=== PATIENT | female | born 1995 | race Two or more races ===

== ENCOUNTER 2018-10-12 20:46 | Emergency (ER) | payer MEDICAID ==
[~2018-10-12] VITALS: Ht 154.9 cm; Wt 104.8 kg
[~2018-10-12 20:46] MED LIST: PRENCAP61 PO
[2018-10-13 00:17] VITALS: BP 110/72
== END 2018-10-13 00:47 | disposition home or self-care (01) ==
LOC: ER 20:46
DX: F41.9 Anxiety disorder, unspecified (principal); R42 Dizziness and giddiness; R51 Headache; Z53.21 Procedure and treatment not carried out due to patient leaving prior to being seen by health care provider
CPT/HCPCS: 82962

== ENCOUNTER 2019-08-07 12:20 | Observation (INO) | payer MEDICAID ==
[~2019-08-07] VITALS: Ht 157.5 cm; Wt 106.1 kg
[2019-08-07] MEDS ORDERED: BETAMETHASONE ACET (6MG/ML) 5ML VIAL IM ONE (13:45)
== END 2019-08-07 14:23 | disposition home or self-care (01) | DRG 566 ==
LOC: LDRP 12:20 → UNDOADMOB 12:22
PROVIDERS: ADMIT Specialist; ATTEND Specialist
DX: O36.5930 Maternal care for other known or suspected poor fetal growth, third trimester, not applicable or unspecified (principal); Z3A.37 37 weeks gestation of pregnancy
CPT/HCPCS: 76818; 81002; 96372; G0378; J0702

== ENCOUNTER 2019-08-09 10:12 | Observation (INO) | payer MEDICAID | END 2019-08-09 12:25 | disposition home or self-care (01) | DRG 566 | LOC: LDRP 10:12 | PROVIDERS: ADMIT Obstetrics & Gynecology; ATTEND Obstetrics & Gynecology | DX: O36.5930 Maternal care for other known or suspected poor fetal growth, third trimester, not applicable or unspecified (principal); Z3A.37 37 weeks gestation of pregnancy | CPT/HCPCS: 76818; 81002; G0378 ==

== ENCOUNTER 2019-08-13 10:49 | Observation (INO) | payer MEDICAID | END 2019-08-13 13:20 | disposition home or self-care (01) | DRG 566 | LOC: LDRP 10:49 | PROVIDERS: ADMIT Obstetrics & Gynecology; ATTEND Obstetrics & Gynecology | DX: O36.5930 Maternal care for other known or suspected poor fetal growth, third trimester, not applicable or unspecified (principal); Z3A.38 38 weeks gestation of pregnancy | CPT/HCPCS: 59025; 76818; 81002; G0378 ==

== ENCOUNTER 2019-08-15 12:45 | Inpatient (IN) | payer MEDICAID ==
[~2019-08-15] VITALS: Ht 30.5 cm; Wt 0.5 kg
[2019-08-15] MEDS ORDERED: LACT. RINGERS/OXYTOCIN 20UNITS 1,000 ML IV SCH ×2 (14:57→21:24)
[2019-08-15] MEDS ORDERED: LACTATED RINGER'S 1,000 ML IV SCH (14:57)
[2019-08-15] MEDS ORDERED: CARBOPROST TROMETHAMINE 250 MCG/1ML VIAL IM PRN (15:00)
[2019-08-15] MEDS ORDERED: METHYLERGONOVINE MALEATE 0.2 MG/ML AMP IM PRN (15:00)
[2019-08-15] MEDS ORDERED: LIDOCAINE 2%HCL (LOCAL ANESTH.) INJ 20ML MDV ID ONE (15:00)
[2019-08-15] MEDS ORDERED: PHISODERM TOP SOLN 240ML BTL TOP PRN (15:00)
[2019-08-15] MEDS ORDERED: WITCH HAZEL-GLYCERIN PAD TOP PRN (15:00)
[2019-08-15] MEDS ORDERED: DERMOPLAST 60ML BOTTLE TOP PRN (15:00)
[2019-08-15 15:36] LABS: Basophils # (auto) 0.1 10 ^3/uL (0-0.2); Basophils % (auto) 0.8 % (0.0-2.0); Eosinophils # (auto) 0 10 ^3/uL (0-0.8); Eosinophils % (auto) 0.2 % (0.0-7.0); Hematocrit 39.7 % (36.0-46.0); Hemoglobin 13.1 g/dL (12.2-16.2); Lymphocytes # (auto) 1.9 10 ^3/uL (0.4-5.4); Lymphocytes % (auto) 14.9 % (10.0-50.0); Mean Corpuscular Hemoglobin 28.6 pg (28.0-32.0); Mean Corpuscular Hgb Conc. 33.1 g/dL (32.0-36.0); Mean Corpuscular Volume 86.5 fL (80.0-100.0); Monocytes # (auto) 0.7 10 ^3/uL (0-1.3); Monocytes % (auto) 5.4 % (0.0-12.0); Neutrophils # (auto) 9.9 10 ^3/uL (1.6-8.6); Neutrophils % (auto) 78.7 % (37.0-80.0); Platelet Count (auto) 255 10^3/uL (140-450); Red Blood Cells 4.59 10^6/uL (4.0-5.20); Red Cell Distribution Width 14.4 % (11.8-14.3); White Blood Cell 12.6 10^3/uL (4.4-10.8)
[2019-08-15 15:45] LABS: Urine Bacteria FEW /hpf (None Seen); Urine Blood Negative /uL (Negative); Urine Specific Gravity 1.021 (1.001-1.035); Urine WBC 2 /hpf (0 - 5)
[2019-08-15 15:51] LABS: INR 0.95 (0.9-1.15); Partial Thromboplastin Time 26.9 sec (23.64-32.05)
[2019-08-15 15:53] LABS: Albumin 2.6 g/dL (3.4-5.0); BUN/Creatinine Ratio 15.8; Calcium 8.9 mg/dL (8.5-10.1); Potassium 3.8 mmol/L (3.5-5.1)
[2019-08-15 15:56] LABS: Bilirubin, Total 0.4 mg/dL (0.2-1.0); Total Protein 7.2 g/dL (6.4-8.2)
[2019-08-15 16:36] LABS: Alcohol, Urine < 3.0 mg/dL (0-5); Amphetamine Screen, Urine NEGATIVE (NEGATIVE); Barbiturate Scree,Urine NEGATIVE (NEGATIVE); Benzodiazephine Screen, Urine NEGATIVE (NEGATIVE); Cannabinoid Screen, Urine NEGATIVE (NEGATIVE); Cocaine Screen, Urine NEGATIVE (NEGATIVE); Opiate Scree,Urine NEGATIVE (NEGATIVE); Phencyclidine Screen, Urine NEGATIVE (NEGATIVE)
[2019-08-15 19:00] VITALS: BP 105/61
[2019-08-15] MEDS ORDERED: ACETAMINOPHEN 325 MG TAB PO PRN (20:30)
--- NOTE | 2019-08-15 20:30 | NUR ---
Bottle-feeding Education: Patient encouraged to breastfeed. Benefits of and the risk of providing formula to was discussed. Patient verbalized understanding of the benefits and is aware of risk and insists on bottle-feeding. Formula provided and instruction on formula preperation from the [facility] booklet reviewed with patient.
--- NOTE | 2019-08-15 20:31 | NUR ---
Ambulation: Patient OOB with standby assistance by RN. Patient ambulated to bathroom with steady gait. Patient able to void without difficulty. Pericare teaching provided with returned demonstration by patient. Clean gown provided and bed linen changed. Patient ambulated back to bed with steady gait and no distress noted.
[2019-08-15] MEDS: IBUPROFEN 600 MG TAB PO PRN (21:01)
[2019-08-15 23:00] VITALS: BP 114/55
[2019-08-16] MEDS: IBUPROFEN 600 MG TAB PO PRN ×2 (01:37→15:22)
[2019-08-16 03:00] VITALS: BP 111/55
[2019-08-16 04:06] LABS: RPR Non Reactive (Non Reactive)
[2019-08-16 07:00] VITALS: BP 113/63
--- NOTE | 2019-08-16 07:30 | NUR ---
IV 20g in left hand discontinued per policy and Dr's order. Cath intact. Tolerated well. Pressure dressing applied to site. Addendum: 08/16/19 at 0817 by NUHA LOVE RN Amended: Links added.
[2019-08-16 11:00] VITALS: BP 118/74
[2019-08-16 15:00] VITALS: BP 114/57
[2019-08-16] MEDS ORDERED: MEASLES, MUMPS & RUBELLA VAC(MMRII) 0.5ML SC ONE (17:00)
[2019-08-16] MEDS ORDERED: TETANUS-DIPTH-ACEL PERTUSSIS 0.5ML SYR Tdap IM ONE (17:00)
--- NOTE | 2019-08-16 17:30 | NUR ---
Discharge: Discharge instructions given as ordered. Pt encouraged to follow up with PLUMBING AND HEATING MECHANIC as instructed. All questions and concerns addressed. Patient verbalized understanding. Medication reconciliation completed and copy given to patient. All required/requested vaccines given and copies of vaccinations given to patient. Patient encouraged to prepare to depart unit.
--- NOTE | 2019-08-16 18:00 | NUR ---
Discharge: Patient taken to vehicle via ambulation with all personal belongings, discharge paperwork accompanied by staff and family member. No distress noted at time of departure, no adverse changes in status since initial assessment.
== END 2019-08-16 18:00 | disposition home or self-care (01) | DRG 560 ==
LOC: LDRP 12:45 → OBSVTOIN 13:35 → LDRP 13:55
PROVIDERS: ADMIT Obstetrics & Gynecology; ATTEND Obstetrics & Gynecology
PROC: 10E0XZZ Delivery of Products of Conception, External Approach (ICD-10-PCS; principal; 2019-08-15)
PROC: 0HQ9XZZ Repair Perineum Skin, External Approach (ICD-10-PCS; 2019-08-15)
PROC: 10907ZC Drainage of Amniotic Fluid, Therapeutic from Products of Conception, Via Natural or Artificial Opening (ICD-10-PCS; 2019-08-15)
DX: O70.0 First degree perineal laceration during delivery (principal); Z37.0 Single live birth; Z3A.38 38 weeks gestation of pregnancy
CPT/HCPCS: 36415; 59409; 80053; 80307; 81001; 84112; 85025; 85610; 85730; 86592; 86850; 86900; 86901; 90715; 96372; G0378; J2590

== ENCOUNTER 2020-03-04 09:28 | Emergency (ER) | payer MEDICAID ==
[~2020-03-04] VITALS: Ht 152.4 cm; Wt 113.4 kg
[2020-03-04 11:41] VITALS: BP 118/75
== END 2020-03-04 11:54 | disposition home or self-care (01) ==
LOC: ER 09:28
DX: R07.89 Other chest pain (principal); F41.9 Anxiety disorder, unspecified; Z20.828 Contact with and (suspected) exposure to other viral communicable diseases; Z79.899 Other long term (current) drug therapy
CPT/HCPCS: 36415; 87426

== ENCOUNTER 2020-12-22 08:59 | Emergency (ER) | payer MEDICAID ==
[~2020-12-22] VITALS: Ht 149.9 cm; Wt 106.7 kg
[2020-12-22 09:07] VITALS: BP 111/74
== END 2020-12-22 10:24 | disposition home or self-care (01) ==
LOC: ER 08:59
DX: J02.9 Acute pharyngitis, unspecified (principal); Z79.899 Other long term (current) drug therapy; Z20.822 Contact with and (suspected) exposure to COVID-19
CPT/HCPCS: 36415; 87426

== ENCOUNTER 2021-01-29 11:05 | Emergency (ER) | payer MEDICAID ==
[~2021-01-29] VITALS: Ht 152.4 cm; Wt 109.8 kg
[2021-01-29 11:39] LABS: Urine Bacteria FEW /hpf (None Seen); Urine Blood Negative /uL (Negative); Urine Mucus FEW (None Seen); Urine Specific Gravity 1.022 (1.001-1.035); Urine WBC 5 /hpf (0 - 5)
[2021-01-29 11:55] LABS: Basophils # (auto) 0.1 10 ^3/uL (0-0.2); Basophils % (auto) 0.7 % (0.0-2.0); Eosinophils # (auto) 0.2 10 ^3/uL (0-0.8); Hematocrit 40.8 % (36.0-46.0); Hemoglobin 13.6 g/dL (12.2-16.2); Lymphocytes % (auto) 30.5 % (10.0-50.0); Mean Corpuscular Hemoglobin 29.6 pg (28.0-32.0); Mean Corpuscular Hgb Conc. 33.4 g/dL (32.0-36.0); Mean Corpuscular Volume 88.5 fL (80.0-100.0); Monocytes # (auto) 0.7 10 ^3/uL (0-1.3); Monocytes % (auto) 6.6 % (0.0-12.0); Neutrophils % (auto) 60.2 % (37.0-80.0); Nucleated Red Blood Cells % 0.1 %; Red Blood Cells 4.61 10^6/uL (4.0-5.20); Red Cell Distribution Width 14.7 % (11.8-14.3); White Blood Cell 9.9 10^3/uL (4.4-10.8)
[2021-01-29 12:05] VITALS: BP 105/48
[2021-01-29 12:05] LABS: Calcium 8.3 mg/dL (8.5-10.1); Potassium 3.9 mmol/L (3.5-5.1)
[2021-01-29 12:09] LABS: Bilirubin, Total 0.2 mg/dL (0.2-1.0); Total Protein 6.8 g/dL (6.4-8.2)
[2021-01-29] MEDS ORDERED: KETOROLAC TROMETH 60MG/2ML VIAL IM ONE (12:30)
== END 2021-01-29 13:14 | disposition home or self-care (01) ==
LOC: ER 11:05
DX: K80.20 Calculus of gallbladder without cholecystitis without obstruction (principal); N39.0 Urinary tract infection, site not specified; Z79.899 Other long term (current) drug therapy
CPT/HCPCS: 36415; 74176; 80053; 81001; 83690; 85025; 96372; 99284; J1885

== ENCOUNTER 2021-03-22 21:18 | Emergency (ER) | payer MEDICAID ==
[~2021-03-22] VITALS: Ht 152.4 cm; Wt 107.6 kg
[2021-03-23 00:39] VITALS: BP 121/64
== END 2021-03-23 00:55 | disposition home or self-care (01) ==
LOC: ER 21:22
DX: J06.9 Acute upper respiratory infection, unspecified (principal); R05.9 Cough, unspecified; R53.83 Other fatigue; R51.9 Headache, unspecified; M79.10 Myalgia, unspecified site; E66.9 Obesity, unspecified; Z68.42 Body mass index [BMI] 45.0-49.9, adult; Z20.822 Contact with and (suspected) exposure to COVID-19
CPT/HCPCS: 36415; 87426

== ENCOUNTER 2021-04-19 05:29 | Emergency (ER) | payer MEDICAID ==
[~2021-04-19] VITALS: Ht 152.4 cm; Wt 106.6 kg
[2021-04-19 09:02] LABS: Urine Bacteria FEW /hpf (None Seen); Urine Blood Negative /uL (Negative); Urine WBC 3 /hpf (0 - 5)
[2021-04-19 10:27] LABS: Basophils # (auto) 0.1 10 ^3/uL (0-0.2); Basophils % (auto) 0.8 % (0.0-2.0); Eosinophils # (auto) 0.9 10 ^3/uL (0-0.8); Eosinophils % (auto) 6.9 % (0.0-7.0); Hematocrit 41.9 % (36.0-46.0); Hemoglobin 14.1 g/dL (12.2-16.2); Lymphocytes # (auto) 3.6 10 ^3/uL (0.4-5.4); Lymphocytes % (auto) 27.8 % (10.0-50.0); Mean Corpuscular Hemoglobin 29.4 pg (28.0-32.0); Mean Corpuscular Hgb Conc. 33.6 g/dL (32.0-36.0); Mean Corpuscular Volume 87.5 fL (80.0-100.0); Monocytes # (auto) 0.8 10 ^3/uL (0-1.3); Monocytes % (auto) 6.1 % (0.0-12.0); Neutrophils # (auto) 7.5 10 ^3/uL (1.6-8.6); Neutrophils % (auto) 58.4 % (37.0-80.0); Nucleated Red Blood Cells % 0.1 %; Red Blood Cells 4.79 10^6/uL (4.0-5.20); Red Cell Distribution Width 14.6 % (11.8-14.3); White Blood Cell 12.8 10^3/uL (4.4-10.8)
[2021-04-19 10:33] LABS: Albumin 3.4 g/dL (3.4-5.0); BUN/Creatinine Ratio 15.3; Bilirubin, Total 0.3 mg/dL (0.2-1.0); Calcium 9.1 mg/dL (8.5-10.1); Total Protein 7.4 g/dL (6.4-8.2)
[2021-04-19 12:52] VITALS: BP 140/65
== END 2021-04-19 12:51 | disposition home or self-care (01) ==
LOC: ER 05:29
DX: R07.89 Other chest pain (principal); F41.8 Other specified anxiety disorders; Z79.899 Other long term (current) drug therapy
CPT/HCPCS: 36415; 80053; 81001; 81025; 83880; 84484; 85025; 93005

== ENCOUNTER 2021-07-24 14:58 | Emergency (ER) | payer MEDICAID ==
[~2021-07-24] VITALS: Ht 149.9 cm; Wt 104.3 kg
[2021-07-24 17:07] VITALS: BP 121/70
[2021-07-24] MEDS ORDERED: IBUP600T27 PO (17:17)
[2021-07-24] MEDS ORDERED: CEPH-509 PO (17:17)
== END 2021-07-24 17:29 | disposition home or self-care (01) ==
LOC: ER 14:58
DX: S10.91XA Abrasion of unspecified part of neck, initial encounter (principal); L08.9 Local infection of the skin and subcutaneous tissue, unspecified; W50.4XXA Accidental scratch by another person, initial encounter; Y93.89 Activity, other specified; Y92.89 Other specified places as the place of occurrence of the external cause; Y99.8 Other external cause status

== ENCOUNTER 2021-10-18 16:56 | Emergency (ER) | payer MEDICAID ==
[~2021-10-18 16:56] MED LIST changes: +CEPH-509 PO; +IBUP600T27 PO
[2021-10-18] MEDS ORDERED: AMOX-277 PO (19:01)
[2021-10-18] MEDS ORDERED: IBUP800T27 PO (19:01)
[2021-10-18 19:03] VITALS: BP 116/54
== END 2021-10-18 19:15 | disposition home or self-care (01) ==
LOC: ER 16:56
DX: K04.7 Periapical abscess without sinus (principal)

== ENCOUNTER 2022-05-25 14:56 | Emergency (ER) | payer MEDICAID ==
[~2022-05-25] VITALS: Ht 152.4 cm; Wt 104.0 kg
[~2022-05-25 14:56] MED LIST changes: +AMOX-277 PO; +IBUP800T27 PO
[2022-05-25] MEDS ORDERED: KETOROLAC TROMETH 30 MG/ML 1ML VIAL IM ONE (19:00)
[2022-05-25 19:02] VITALS: BP 116/78
== END 2022-05-25 19:10 | disposition home or self-care (01) ==
LOC: ER 14:56
DX: S46.912A Strain of unspecified muscle, fascia and tendon at shoulder and upper arm level, left arm, initial encounter (principal); F12.10 Cannabis abuse, uncomplicated; Z88.1 Allergy status to other antibiotic agents; Z88.6 Allergy status to analgesic agent; X50.9XXA Other and unspecified overexertion or strenuous movements or postures, initial encounter; Y93.89 Activity, other specified; Y92.89 Other specified places as the place of occurrence of the external cause; Y99.8 Other external cause status
CPT/HCPCS: 96372; 99283; J1885

== ENCOUNTER 2023-07-17 16:30 | Emergency (ER) | payer MEDICAID ==
[~2023-07-17] VITALS: Ht 149.9 cm; Wt 110.1 kg
[~2023-07-17 16:30] MED LIST changes: -AMOX-277 PO; +AMOX875T4 PO; +IBUP-1454 PO; +IBUP-1456 PO; -IBUP600T27 PO; -IBUP800T27 PO
[2023-07-17 17:09] VITALS: BP 106/52; PULSE 82; RESP 16; O2SAT 95
[2023-07-17] MEDS ORDERED: HYDR-4902 PO (20:34)
[2023-07-17] MEDS: DexAMETHasone SOD PHOS 10MG/1ML VIAL INJ IM ONE (20:50)
[2023-07-17] MEDS: KETOROLAC TROMETH 60MG/2ML VIAL IM ONE (20:50)
== END 2023-07-17 21:03 | disposition home or self-care (01) ==
LOC: ER 16:30
DX: G56.01 Carpal tunnel syndrome, right upper limb (principal); M25.531 Pain in right wrist; F12.10 Cannabis abuse, uncomplicated; F41.9 Anxiety disorder, unspecified
CPT/HCPCS: 29125; 96372; 99284; J1100; J1885

== ENCOUNTER 2025-02-11 16:40 | Emergency (ER) | payer MEDICAID, OTHER ==
[~2025-02-11] VITALS: Ht 152.4 cm; Wt 106.5 kg
[~2025-02-11 16:40] MED LIST changes: +HYDR-4902 PO
[2025-02-11] MEDS ORDERED: NAP500T PO (17:23)
[2025-02-11] MEDS ORDERED: AMOX500T3 PO (17:23)
--- NOTE | 2025-02-11 17:23 | ED.PDOC ---
Eye-HPI HPI Comments 29-year-old female who presents to the ED for chief complaint of tooth pain. Patient states that she has left upper quadrant tooth pain by left maxilla since yesterday p.m. Patient states that he has been having increasing pain with noted swelling and came to the ED for the evaluation. The patient states she tried OTC Tylenol but it has not been helping. Patient states she last went to the dentist in August 2024 and states that she needs to come back for follow up regarding root canal but states she has been scheduled follow up appointment. The patient in the ED otherwise denies any other symptoms. Chief Complaint: Tooth Pain Time Seen by MD: 16:57 Primary Care Provider: UNKNOWN Reviewed Notes: Mammalogist Notes, Medications Allergies: Coded Allergies: NO KNOWN ALLERGIES (Unverified , 11/11/13) Home Meds Active Scripts Naproxen (NAPROSYN TABLET) 500 Mg Tb, 1 TAB PO BIDPC for 10 Days, #20 TAB 0 Refills Prov:SHRUTHI WHITMORE RUG RENOVATOR 02/11/25 Amoxicillin Trihydrate (Amoxicillin) 500 Mg Tab, 1 TAB PO BID for 10 Days, #20 TAB 0 Refills Prov:SHRUTHI WHITMORE RUG RENOVATOR 02/11/25 Hydrocodone-Acetaminophen (Hydrocodone Bitartrate/AC 5-325 mg) 1 Tab Tab, 1 TAB PO Q6HPRN PRN, #10 TAB As needed for pain Prov:CASSIE BRITO RUG RENOVATOR 07/17/23 Ibuprofen (Ibuprofen) 800 Mg Tab, 1 TAB PO Q6HPRN PRN, #30 TAB 0 Refills Prov:CHLOE NEWSOME 10/18/21 Amoxicillin & Pot Clavulanate (Amoxicillin/Potassium Cla) 875 Mg Tab, 1 TAB PO BID for 10 Days, #20 TAB 0 Refills Prov:CHLOE NEWSOME 10/18/21 Ibuprofen (Ibuprofen) 600 Mg Tab, 600 MG PO TID, #30 TAB Prov:LEOLA VALENTIN 07/24/21 Cephalexin (KEFLEX 500) 500 Mg Cap, 1 CAP PO QID, #40 CAP Prov:LEOLA VALENTIN 07/24/21 Reported Medications Vit W/ Fe Carbonyl-Fe (Pnv-Total) Cap, 1 TAB PO DAILY, CAP 11/12/13 Information Source: Patient Mode of Arrival: Ambulatory Past Medical History PAST MEDICAL HISTORY: Anxiety Surgical History: Denies all surgeries SOOT BLOWER History: No Pertinent SOOT BLOWER History Family History Family History: Reviewed,noncontributory to illness Social History Smoker: Non-Smoker Alcohol: Occasionally Drugs: Marijuana Lives In: Home Constitutional: denies: chills, diaphoresis, fatigue, fever, malaise, sweats, weakness, others EENTM: reports: others (tooth pain); denies: blurred vision, double vision, ear bleeding, ear discharge, ear drainage, ear pain, ear ringing, eye pain, eye redness, hearing loss, mouth pain, mouth swelling, nasal discharge, nose bleeding, nose congestion, nose pain, photophobia, tearing, throat pain, throat swelling, voice changes Respiratory: denies: cough, hemoptysis, orthopnea, SOB at rest, shortness of breath, SOB with excertion, stridor, wheezing, others Cardiovascular: denies: chest pain, dizzy spells, diaphoresis, Dyspnea on exertion, edema, irregular heart beat, left arm pain, lightheadedness, palpitations, PND, syncope, others Gastrointestinal: denies: abdomen distended, abdominal pain, blood streaked bowels, constipated, diarrhea, dysphagia, difficulty swallowing, hematemesis, melena, nausea, poor appetite, poor fluid intake, rectal bleeding, rectal pain, vomiting, others Genitourinary: denies: abnormal vagina bleeding, burning, dyspareunia, dysuria, flank pain, frequency, hematuria, incontinence, pain, , vagina discharge, urgency, others Neurological: denies: dizziness, fainting, headache, left sided numbness, left sided weakness, numbness, paresthesia, pre-existing deficit, right sided numbness, right sided weakness, seizure, speech problems, tingling, tremors, weakness, others Musculoskeletal: denies: back pain, gout, joint pain, joint swelling, muscle pain, muscle stiffness, neck pain, others Integumetry: denies: bruises, change in color, change in hair/nails, dryness, laceration, lesions, lumps, rash, wounds, others Allergic/Immunocompromised: denies: Difficulty Healing, Frequent Infections, Hives, Itching, others Hematologic/Lymphatic: denies: anemia, blood clots, easy bleeding, easy bruising, swollen glands, others Endocrine: denies: excessive hunger, excessive sweating, excessive thirst, excessive urination, flushing, intolerance to cold, intolerance to heat, unexplained weight gain, unexplained weight loss, others Psychiatric: denies: anxiety, bipolar disorder, depression, hopeless, panic disorder, schizophrenia, sleepless, suicidal, others All Other Systems: Reviewed and Negative Physical Exam General Appearance: No Apparent Distress, Normal HEENT: Other ( (Pain to the left upper quadrant oral cavity, tooth 15, no dental caries no gingivitis)) Neck: Full Range of Motion, Non-Tender, Normal, Normal Inspection Respiratory: Chest Non-Tender, Lungs Clear, No Accessory Muscle Use, No Respiratory Distress, Normal Breath Sounds Cardiovascular: No Edema, No JVD, No Murmur, No Gallop, Normal Peripheral Pulses, Regular Rate/Rhythm Breast Exam: Deferred Gastrointestinal: No Organomegaly, Non Tender, No Pulsatile Mass, Normal Bowel Sounds, Soft Genitalia: Deferred Pelvic: Deferred Rectal: Deferred Extremities: No calf tenderness, Normal capillary refill, Normal inspection, Normal range of motion, Non-tender, No pedal edema Musculoskeletal : Apperance: Normal Neurologic: Alert, farm or ranch animal caretaker II-XII nml as Tested, No Motor Deficits, Normal Affect, Normal Mood, No Sensory Deficits Cerebellar Function: Normal Reflexes: Normal Skin: Dry, Normal Color, Warm Lymphatic: No Adenopathy Was a procedure done? Was a procedure done?: No EENT DIFF Sore Throat: Peritonsillar Cellulitis, URI, Other (Dental caries) X-Ray, Labs, Meds, VS Vital Signs Date Time Temp Pulse Resp B/P (MAP) Pulse Ox O2 Delivery O2 Flow Rate FiO2 02/11/25 16:43 97.6 111 16 124/49 96 97.6 Time of 1ST Reevaluation: 17:20 Reevaluation 1ST: Unchanged Patient Education/Counseling: Diagnosis, Treatment Family Education/Counseling: No Family Present SEPSIS Sepsis Screen Date sepsis recognized/suspect: Feb 11, 2025 Time Sepsis recognized/suspect: 1644 Recent Procedure: No On Antibiotic Therapy: No Respiratory Rate >20: No Heart Rate >90: No Temp<36 C (96.8 F) or >38.3 C: No SBP <90 or MAP <65 mmHG: No New Acute Mental Status Change: No Is the patient on CPAP, BIPAP,: No Vital Signs Date Time Temp Pulse Resp B/P (MAP) Pulse Ox O2 Delivery O2 Flow Rate FiO2 02/11/25 16:43 97.6 111 16 124/49 96 97.6 Departure 1 Departure Time of Disposition: 17:20 Impression: Primary Impression: Tooth pain Disposition: HOME / SELF CARE / HOMELESS e-Prescriptions Naproxen (NAPROSYN TABLET) 500 Mg Tb 1 TAB PO BIDPC for 10 Days, #20 TAB 0 Refills Prov: SHRUTHI WHITMORE NP 02/11/25 Amoxicillin Trihydrate (Amoxicillin) 500 Mg Tab 1 TAB PO BID for 10 Days, #20 TAB 0 Refills Prov: SHRUTHI WHITMORE NP 02/11/25 Critical Care Note Critical Care Time?: No Stability Stability form required: No Heart Score Heart Score: Heart Score Response (Comments) Value History N/A 0 EKG N/A 0 Age N/A 0 Risk Factors N/A 0 Troponin N/A 0 Total 0 I personally scribed for SHRUTHI WHITMORE NP ([email or web address]) on 02/11/25 at 17:38. Electronically submitted by Zari Burch ([email or web address]). SHRUTHI WHITMORE NP Feb 11, 2025 17:23
--- NOTE | 2025-02-11 17:30 | ED.PDOC ---
Eye-HPI HPI Comments 29-year-old female who presents to the ED for chief complaint of tooth pain. Patient states that she has left upper quadrant tooth pain by left maxilla since yesterday p.m. patient states that he has been having increasing pain with noted swelling and came to the ED for the evaluation. The patient states she tried OTC Tylenol but it has not been helping. Patient states she last went to the dentist in August 2024 and states that she needs to come back for follow up regarding root canal but states she has been scheduled follow up appointment. The patient in the ED otherwise denies any other symptoms Chief Complaint: Tooth Pain Time Seen by MD: 17:22 Primary Care Provider: UNKNOWN Reviewed Notes: Medications, Allergies Allergies: Coded Allergies: NO KNOWN ALLERGIES (Unverified , 11/11/13) Home Meds Active Scripts Naproxen (NAPROSYN TABLET) 500 Mg Tb, 1 TAB PO BIDPC for 10 Days, #20 TAB 0 Refills Prov:SHRUTHI WHITMORE BOX FEEDER 02/11/25 Amoxicillin Trihydrate (Amoxicillin) 500 Mg Tab, 1 TAB PO BID for 10 Days, #20 TAB 0 Refills Prov:SHRUTHI WHITMORE BOX FEEDER 02/11/25 Hydrocodone-Acetaminophen (Hydrocodone Bitartrate/AC 5-325 mg) 1 Tab Tab, 1 TAB PO Q6HPRN PRN, #10 TAB As needed for pain Prov:CASSIE BRITO BOX FEEDER 07/17/23 Ibuprofen (Ibuprofen) 800 Mg Tab, 1 TAB PO Q6HPRN PRN, #30 TAB 0 Refills Prov:CHLOE NEWSOME 10/18/21 Amoxicillin & Pot Clavulanate (Amoxicillin/Potassium Cla) 875 Mg Tab, 1 TAB PO BID for 10 Days, #20 TAB 0 Refills Prov:CHLOE NEWSOME 10/18/21 Ibuprofen (Ibuprofen) 600 Mg Tab, 600 MG PO TID, #30 TAB Prov:LEOLA VALENTIN 07/24/21 Cephalexin (KEFLEX 500) 500 Mg Cap, 1 CAP PO QID, #40 CAP Prov:LEOLA VALENTIN 07/24/21 Reported Medications Vit W/ Fe Carbonyl-Fe (Pnv-Total) Cap, 1 TAB PO DAILY, CAP 11/12/13 Information Source: Patient Mode of Arrival: Ambulatory Past Medical History PAST MEDICAL HISTORY: Anxiety Surgical History: Denies all surgeries COFFEE ATTENDANT History: No Pertinent COFFEE ATTENDANT History Family History Family History: Reviewed,noncontributory to illness Social History Smoker: Non-Smoker Alcohol: Occasionally Drugs: Marijuana Lives In: Home Constitutional: denies: chills, diaphoresis, fatigue, fever, malaise, sweats, weakness, others EENTM: reports: others (Tooth pain); denies: blurred vision, double vision, ear bleeding, ear discharge, ear drainage, ear pain, ear ringing, eye pain, eye redness, hearing loss, mouth pain, mouth swelling, nasal discharge, nose bleeding, nose congestion, nose pain, photophobia, tearing, throat pain, throat swelling, voice changes Respiratory: denies: cough, hemoptysis, orthopnea, SOB at rest, shortness of breath, SOB with excertion, stridor, wheezing, others Cardiovascular: denies: chest pain, dizzy spells, diaphoresis, Dyspnea on exertion, edema, irregular heart beat, left arm pain, lightheadedness, palpitations, PND, syncope, others Gastrointestinal: denies: abdomen distended, abdominal pain, blood streaked bowels, constipated, diarrhea, dysphagia, difficulty swallowing, hematemesis, melena, nausea, poor appetite, poor fluid intake, rectal bleeding, rectal pain, vomiting, others Genitourinary: denies: abnormal vagina bleeding, burning, dyspareunia, dysuria, flank pain, frequency, hematuria, incontinence, pain, , vagina discharge, urgency, others Neurological: denies: dizziness, fainting, headache, left sided numbness, left sided weakness, numbness, paresthesia, pre-existing deficit, right sided numbness, right sided weakness, seizure, speech problems, tingling, tremors, weakness, others Musculoskeletal: denies: back pain, gout, joint pain, joint swelling, muscle pain, muscle stiffness, neck pain, others Integumetry: denies: bruises, change in color, change in hair/nails, dryness, laceration, lesions, lumps, rash, wounds, others Allergic/Immunocompromised: denies: Difficulty Healing, Frequent Infections, Hives, Itching, others Hematologic/Lymphatic: denies: anemia, blood clots, easy bleeding, easy bruising, swollen glands, others Endocrine: denies: excessive hunger, excessive sweating, excessive thirst, excessive urination, flushing, intolerance to cold, intolerance to heat, unexpl ained weight gain, unexplained weight loss, others Psychiatric: denies: anxiety, bipolar disorder, depression, hopeless, panic disorder, schizophrenia, sleepless, suicidal, others All Other Systems: Reviewed and Negative Physical Exam General Appearance: No Apparent Distress, Normal HEENT: Other (Pain to the left upper quadrant tooth 15., no dental caries no gingivitis) Neck: Full Range of Motion, Non-Tender, Normal, Normal Inspection Respiratory: Chest Non-Tender, Lungs Clear, No Accessory Muscle Use, No Respiratory Distress, Normal Breath Sounds Cardiovascular: No Edema, No JVD, No Murmur, No Gallop, Normal Peripheral Pulses, Regular Rate/Rhythm Breast Exam: Deferred Gastrointestinal: No Organomegaly, Non Tender, No Pulsatile Mass, Normal Bowel Sounds, Soft Genitalia: Deferred Pelvic: Deferred Rectal: Deferred Extremities: No calf tenderness, Normal capillary refill, Normal inspection, Normal range of motion, Non-tender, No pedal edema Musculoskeletal : Apperance: Normal Neurologic: Alert, lawn care professional II-XII nml as Tested, No Motor Deficits, Normal Affect, Normal Mood, No Sensory Deficits Cerebellar Function: Normal Reflexes: Normal Skin: Dry, Normal Color, Warm Lymphatic: No Adenopathy Was a procedure done? Was a procedure done?: No EENT DIFF Mouth: Thrush, Other (Dental caries) Sore Throat: Peritonsillar Abscess, Peritonsillar Cellulitis, Pharyngitis X-Ray, Labs, Meds, VS Vital Signs Date Time Temp Pulse Resp B/P (MAP) Pulse Ox O2 Delivery O2 Flow Rate FiO2 02/11/25 16:43 97.6 111 16 124/49 96 97.6 Time of 1ST Reevaluation: 18:00 Reevaluation 1ST: Unchanged Patient Education/Counseling: Diagnosis, Treatment Family Education/Counseling: No Family Present SEPSIS Sepsis Screen Date sepsis recognized/suspect: Feb 11, 2025 Time Sepsis recognized/suspect: 1644 Recent Procedure: No On Antibiotic Therapy: No Respiratory Rate >20: No Heart Rate >90: No Temp<36 C (96.8 F) or >38.3 C: No SBP <90 or MAP <65 mmHG: No New Acute Mental Status Change: No Is the patient on CPAP, BIPAP,: No Vital Signs Date Time Temp Pulse Resp B/P (MAP) Pulse Ox O2 Delivery O2 Flow Rate FiO2 02/11/25 16:43 97.6 111 16 124/49 96 97.6 Departure 1 Departure e-Prescriptions Naproxen (NAPROSYN TABLET) 500 Mg Tb 1 TAB PO BIDPC for 10 Days, #20 TAB 0 Refills Prov: SHRUTHI WHITMORE NP 02/11/25 Amoxicillin Trihydrate (Amoxicillin) 500 Mg Tab 1 TAB PO BID for 10 Days, #20 TAB 0 Refills Prov: SHRUTHI WHITMORE NP 02/11/25 Critical Care Note Critical Care Time?: No Stability Stability form required: No Heart Score Heart Score: Heart Score Response (Comments) Value History N/A 0 EKG N/A 0 Age N/A 0 Risk Factors N/A 0 Troponin N/A 0 Total 0 I personally scribed for SHRUTHI WHITMORE NP ([email or web address]) on 02/11/25 at 17:30. Electronically submitted by Zari Burch ([email or web address]). I personally scribed for SHRUTHI WHITMORE NP ([email or web address]) on 02/11/25 at 17:34. Electronically submitted by Zari Burch ([email or web address]). SHRUTHI WHITMORE NP Feb 11, 2025 17:30
[2025-02-11] MEDS: ACETAMINOPHEN/CODEINE#3 (300/30mg) TAB PO ONE (17:35)
[2025-02-11 17:45] VITALS: BP 134/78; PULSE 78; RESP 16; TEMP 98.6; O2SAT 97
[2025-02-12] MEDS ORDERED: CLIN1CAP70 PO (23:08)
== END 2025-02-11 18:11 | disposition home or self-care (01) ==
LOC: ER 16:40
DX: K08.89 Other specified disorders of teeth and supporting structures (principal); Z79.1 Long term (current) use of non-steroidal anti-inflammatories (NSAID)

== ENCOUNTER 2025-02-12 22:26 | Emergency (ER) | payer MEDICAID ==
[~2025-02-12] VITALS: Ht 152.4 cm; Wt 106.1 kg
[~2025-02-12 22:26] MED LIST changes: +AMOX500T3 PO; +NAP500T PO
[2025-02-12 22:27] VITALS: BP 119/72; PULSE 81; RESP 18; TEMP 98.2; O2SAT 95
[2025-02-12] MEDS ORDERED: CLIN1CAP70 PO (23:08)
--- NOTE | 2025-02-12 23:08 | ED.PDOC ---
Eye-HPI HPI Comments 29-year-old female presents to ER with complaints of toothache x3 days. Patient reports she has been experiencing left upper toothache pain x3 days with associated left-sided facial swelling x1 day. Reports that she was seen and evaluated in ER here for her symptoms yesterday and prescribed amoxicillin along with naproxen that she has been taking without relief. She rates her current left upper toothache pain a 3/10 with radiation towards the left side of face. Patient presents to ER ambulatory on arrival, with steady gait, in no distress and notes she has not yet followed up with a dentist but plans to contact one "tomorrow". Denies fever, body aches, chills, headache, neck pain or any further symptoms/complaints Chief Complaint: Tooth Pain Time Seen by MD: 22:42 Primary Care Provider: UNKNOWN Reviewed Notes: Nurses Notes, Medications, Allergies Allergies: Coded Allergies: NO KNOWN ALLERGIES (Unverified , 11/11/13) Home Meds Active Scripts Clindamycin Hcl (Clindamycin Hcl) 300 Mg Cap, 300 MG PO QID for 10 Days, #40 CAP 0 Refills Prov:ROWAN LEIGH 02/12/25 Naproxen (NAPROSYN TABLET) 500 Mg Tb, 1 TAB PO BIDPC for 10 Days, #20 TAB 0 Refills Prov:SHRUTHI WHITMORE NP 02/11/25 Amoxicillin Trihydrate (Amoxicillin) 500 Mg Tab, 1 TAB PO BID for 10 Days, #20 TAB 0 Refills Prov:SHRUTHI WHITMORE NP 02/11/25 Hydrocodone-Acetaminophen (Hydrocodone Bitartrate/AC 5-325 mg) 1 Tab Tab, 1 TAB PO Q6HPRN PRN, #10 TAB As needed for pain Prov:CASSIE BRITO DESIGN TEACHER 07/17/23 Ibuprofen (Ibuprofen) 800 Mg Tab, 1 TAB PO Q6HPRN PRN, #30 TAB 0 Refills Prov:CHLOE NEWSOME 10/18/21 Amoxicillin & Pot Clavulanate (Amoxicillin/Potassium Cla) 875 Mg Tab, 1 TAB PO BID for 10 Days, #20 TAB 0 Refills Prov:CHLOE NEWSOME 10/18/21 Ibuprofen (Ibuprofen) 600 Mg Tab, 600 MG PO TID, #30 TAB Prov:LEOLA VALENTIN 07/24/21 Cephalexin (KEFLEX 500) 500 Mg Cap, 1 CAP PO QID, #40 CAP Prov:JOLANTA VALENTINBlanca LOPEZ 07/24/21 Reported Medications Vit W/ Fe Carbonyl-Fe (Pnv-Total) Cap, 1 TAB PO DAILY, CAP 11/12/13 Information Source: Patient Mode of Arrival: Ambulatory Past Medical History PAST MEDICAL HISTORY: Anxiety Surgical History: Denies all surgeries REROLLER HAND History: No Pertinent REROLLER HAND History Family History Family History: Unknown Social History Smoker: Non-Smoker Alcohol: Occasionally Drugs: Marijuana Lives In: Home Constitutional: denies: chills, diaphoresis, fatigue, fever, malaise, sweats, weakness, others EENTM: reports: others (As stated in HPI) Respiratory: denies: cough, hemoptysis, orthopnea, SOB at rest, shortness of breath, SOB with excertion, stridor, wheezing, others Cardiovascular: denies: chest pain, dizzy spells, diaphoresis, Dyspnea on exertion, edema, irregular heart beat, left arm pain, lightheadedness, palpitations, PND, syncope, others Gastrointestinal: denies: abdomen distended, abdominal pain, blood streaked bowels, constipated, diarrhea, dysphagia, difficulty swallowing, hematemesis, melena, nausea, poor appetite, poor fluid intake, rectal bleeding, rectal pain, vomiting, others Genitourinary: denies: abnormal vagina bleeding, burning, dyspareunia, dysuria, flank pain, frequency, hematuria, incontinence, pain, , vagina discharge, urgency, others Neurological: denies: dizziness, fainting, headache, left sided numbness, left sided weakness, numbness, paresthesia, pre-existing deficit, right sided numbness, right sided weakness, seizure, speech problems, tingling, tremors, weakness, others Musculoskeletal: denies: back pain, gout, joint pain, joint swelling, muscle pain, muscle stiffness, neck pain, others Integumetry: reports: others (As stated in HPI) Allergic/Immunocompromised: denies: Difficulty Healing, Frequent Infections, Hives, Itching, others Hematologic/Lymphatic: denies: anemia, blood clots, easy bleeding, easy bruising, swollen glands, others Endocrine: denies: excessive hunger, excessive sweating, excessive thirst, excessive urination, flushing, intolerance to cold, intolerance to heat, unexplained weight gain, unexplained weight loss, others Psychiatric: denies: anxiety, bipolar disorder, depression, hopeless, panic disorder, schizophrenia, sleepless, suicidal, others Physical Exam General Appearance: No Apparent Distress, Obese HEENT: PERRL/EOMI, Pharynx Normal, TMs Normal Neck: Full Range of Motion, Non-Tender, Normal Respiratory: Chest Non-Tender, Lungs Clear, No Accessory Muscle Use, No Respiratory Distress, Normal Breath Sounds Cardiovascular: No Murmur, No Gallop, Regular Rate/Rhythm Breast Exam: Deferred Gastrointestinal: NOT DONE Genitalia: Deferred Pelvic: Deferred Rectal: Deferred Extremities: Normal capillary refill, Normal range of motion Neurologic: Alert, transitional care manager II-XII nml as Tested, No Motor Deficits, Normal Affect, Normal Mood, No Sensory Deficits Cerebellar Function: Normal Reflexes: Normal Skin: Dry, Normal Color, Warm Peripheral Pulses: 2+ carotid (R), 2+ carotid (L), 2+ Radial (R), 2+ Radial (L), 2+ Brachial (R), 2+ Brachial (L) Lymphatic: No Adenopathy Was a procedure done? Was a procedure done?: No Sedation Sedation?: No Images 1 - Mild swelling/erythema to surrounding gums noted without bleeding/drainage noted. Mild left-sided facial swelling also noted, no further skin changes noted EENT DIFF Eye: N/A Mouth: Thrush, Other (Dental abscess, Brad's angina) X-Ray, Labs, Meds, VS Vital Signs Date Time Temp Pulse Resp B/P (MAP) Pulse Ox O2 Delivery O2 Flow Rate FiO2 02/12/25 22:27 98.2 81 18 119/72 95 98.2 Current Medications Medications (Trade) Dose Ordered Sig/Nilsa Route Start Time Stop Time Status Last Admin Clindamycin Phosphate 50 ml @ 50 mls/hr ONCE ONCE IV 02/12/25 23:15 02/13/25 00:14 02/12/25 23:22 Methylprednisolone Sodium Succinate (Solu Medrol) 125 mg ONCE ONCE IV 02/12/25 23:15 02/12/25 23:16 DC 02/12/25 23:23 Hep-Lock IV ordered Clindamycin 900 mg IV ordered Solu-Medrol 125 mg IV ordered Patient had improvement in symptoms, afebrile, well appearing and in no distress prior to discharge Advised to discontinue amoxicillin and take the following antibiotics below as prescribed Advised to follow up with PCP and dentist in 1-2 days Patient verbalized understanding and agreeable with current plan of care Advised to return to ER immediately if symptoms worsen Time of 1ST Reevaluation: 22:44 Reevaluation 1ST: N/A Patient Education/Counseling: Diagnosis, Treatment, Prognosis, Need For Follow Up Family Education/Counseling: No Family Present SEPSIS Sepsis Screen Date sepsis recognized/suspect: Feb 12, 2025 Time Sepsis recognized/suspect: 2228 Recent Procedure: No On Antibiotic Therapy: Yes Respiratory Rate >20: No Heart Rate >90: No Temp<36 C (96.8 F) or >38.3 C: No SBP <90 or MAP <65 mmHG: No New Acute Mental Status Change: No Is the patient on CPAP, BIPAP,: No Physician Orders Heplock Iv (02/12/25 ) Clindamycin 900mg Iv (Cleocin Iv) (02/12/25 23:15) Vital Signs Date Time Temp Pulse Resp B/P (MAP) Pulse Ox O2 Delivery O2 Flow Rate FiO2 02/12/25 22:27 98.2 81 18 119/72 95 98.2 Medications Medications Dose Ordered Sig/Nilsa Route Start Time Stop Time Status Last Admin Dose Admin Clindamycin Phosphate 50 ml @ 50 mls/hr ONCE ONCE IV 02/12/25 23:15 02/13/25 00:14 02/12/25 23:22 Methylprednisolone Sodium Succinate 125 mg ONCE ONCE IV 02/12/25 23:15 02/12/25 23:16 DC 02/12/25 23:23 Departure 1 Departure Time of Disposition: 23:06 Impression: Primary Impression: Dental infection Disposition: 01 HOME / SELF CARE / HOMELESS Condition: Stable e-Prescriptions Clindamycin Hcl (Clindamycin Hcl) 300 Mg Cap 300 MG PO QID for 10 Days, #40 CAP 0 Refills Prov: ROWAN LEIGH 02/12/25 Discharged With: Self Critical Care Note Critical Care Time?: No Stability Stability form required: No Heart Score Heart Score: Heart Score Response (Comments) Value History N/A 0 EKG N/A 0 Age N/A 0 Risk Factors N/A 0 Troponin N/A 0 Total 0 ROWAN LEIGH Feb 12, 2025 23:08
[2025-02-12] MEDS: CLINDAMYCIN 900MG IV 50 ML IV ONE (23:22)
[2025-02-12] MEDS: methylPREDNISolone SOD SUCC 125 MG/2 ML VL IV ONE (23:23)
== END 2025-02-13 00:23 | disposition home or self-care (01) ==
LOC: ER 22:26
DX: K04.7 Periapical abscess without sinus (principal); F41.9 Anxiety disorder, unspecified; Z79.899 Other long term (current) drug therapy
CPT/HCPCS: 96365; 96375; 99284; J2919; J3490

== ENCOUNTER 2025-02-16 12:44 | Emergency (ER) | payer MEDICAID ==
[~2025-02-16] VITALS: Ht 152.4 cm; Wt 104.8 kg
[~2025-02-16 12:44] MED LIST changes: +CLIN1CAP70 PO
--- NOTE | 2025-02-16 13:36 | ED.PDOC ---
History of Present Illness HPI Comments 29-year-old female presents to the ER with the chief complaint of dizziness. Patient reports having had a tooth infection and was given amoxicillin, but recently the tooth infection popped and immediately after the patient has started having dizziness associated with palpitations. Patient states on the dizziness starting yesterday onto today associated with lightheadedness and being off balance. Denies any other symptoms at this time. Denies chills, fever, N/V/D, SOB, CP. No other associated symptoms, modifiers, recent injuries or sick contacts present at this time. Chief Complaint: Dizziness Time Seen by MD: 12:55 Primary Care Provider: UNKNOWN Reviewed Notes: Nurses Notes, Medications, Allergies Allergies: Coded Allergies: NO KNOWN ALLERGIES (Unverified , 11/11/13) Home Meds Active Scripts Clindamycin Hcl (Clindamycin Hcl) 300 Mg Cap, 300 MG PO QID for 10 Days, #40 CAP 0 Refills Prov:ROWAN LEIGH 02/12/25 Naproxen (NAPROSYN TABLET) 500 Mg Tb, 1 TAB PO BIDPC for 10 Days, #20 TAB 0 Refills Prov:SHRUTHI WHITMORE [employer]VERT[employer]ASING [employer] 02/11/25 Amoxicillin Trihydrate (Amoxicillin) 500 Mg Tab, 1 TAB PO BID for 10 Days, #20 TAB 0 Refills Prov:SHRUTHI WHITMORE [employer]VERT[employer]ASING [employer]ENT 02/11/25 Hydrocodone-Acetaminophen (Hydrocodone Bitartrate/AC 5-325 mg) 1 Tab Tab, 1 TAB PO Q6HPRN PRN, #10 TAB As needed for pain Prov:CASSIE BRITO [employer]VERTISING [employer]ASING [employer]ENT 07/17/23 Ibuprofen (Ibuprofen) 800 Mg Tab, 1 TAB PO Q6HPRN PRN, #30 TAB 0 Refills Prov:CHLOE NEWSOME 10/18/21 Amoxicillin & Pot Clavulanate (Amoxicillin/Potassium Cla) 875 Mg Tab, 1 TAB PO BID for 10 Days, #20 TAB 0 Refills Prov:CHLOE NEWSOME 10/18/21 Ibuprofen (Ibuprofen) 600 Mg Tab, 600 MG PO TID, #30 TAB Prov:LEOLA VALENTIN 07/24/21 Cephalexin (KEFLEX 500) 500 Mg Cap, 1 CAP PO QID, #40 CAP Prov:LEOLA VALENTIN 4/23/22 Reported Medications Vit W/ Fe Carbonyl-Fe (Pnv-Total) Cap, 1 TAB PO DAILY, CAP 11/12/13 Information Source: Patient Mode of Arrival: Ambulatory Severity: Moderate Timing: Hours Duration: Since onset, Hours Prehospital treatment: None Past Medical History PAST MEDICAL HISTORY: Denies Surgical History: Denies all surgeries [employer] History: No Pertinent [employer] TE[employer] History Family History Family History: Reviewed,noncontributory to illness, Unknown Social History Smoker: Unknown Alcohol: Unknown Drugs: Unknown Lives In: Home Constitutional: denies: chills, diaphoresis, fatigue, fever, malaise, sweats, weakness, others EENTM: denies: blurred vision, double vision, ear bleeding, ear discharge, ear drainage, ear pain, ear ringing, eye pain, eye redness, hearing loss, mouth pain, mouth swelling, nasal discharge, nose bleeding, nose congestion, nose pain, photophobia, tearing, throat pain, throat swelling, voice changes, others Respiratory: denies: cough, hemoptysis, orthopnea, SOB at rest, shortness of breath, SOB with excertion, stridor, wheezing, others Cardiovascular: reports: palpitations; denies: chest pain, dizzy spells, diaphoresis, Dyspnea on exertion, edema, irregular heart beat, left arm pain, lightheadedness, PND, syncope, others Gastrointestinal: denies: abdomen distended, abdominal pain, blood streaked bowels, constipated, diarrhea, dysphagia, difficulty swallowing, hematemesis, melena, nausea, poor appetite, poor fluid intake, rectal bleeding, rectal pain, vomiting, others Genitourinary: denies: abnormal vagina bleeding, burning, dyspareunia, dysuria, flank pain, frequency, hematuria, incontinence, pain, , vagina discharge, urgency, others Neurological: reports: dizziness (Lightheadedness and off-balance); denies: fainting, headache, left sided numbness, left sided weakness, numbness, paresthesia, pre-existing deficit, right sided numbness, right sided weakness, seizure, speech problems, tingling, tremors, weakness, others Musculoskeletal: denies: back pain, gout, joint pain, joint swelling, muscle pain, muscle stiffness, neck pain, others Integumetry: denies: bruises, change in color, change in hair/nails, dryness, laceration, lesions, lumps, rash, wounds, others Allergic/Immunocompromised: denies: Difficulty Healing, Frequent Infections, Hives, Itching, others Hematologic/Lymphatic: denies: anemia, blood clots, easy bleeding, easy bruising, swollen glands, others Endocrine: denies: excessive hunger, excessive sweating, excessive thirst, excessive urination, flushing, intolerance to cold, intolerance to heat, unexplained weight gain, unexplained weight loss, others Psychiatric: denies: anxiety, bipolar disorder, depression, hopeless, panic disorder, schizophrenia, sleepless, suicidal, others All Other Systems: Reviewed and Negative Physical Exam General Appearance: No Apparent Distress, Normal HEENT: Normal ENT Inspection, Pharynx Normal, TMs Normal Neck: Full Range of Motion, Non-Tender, Normal, Normal Inspection Respiratory: Chest Non-Tender, Lungs Clear, No Accessory Muscle Use, No Respiratory Distress, Normal Breath Sounds Cardiovascular: No Edema, No JVD, No Murmur, No Gallop, Normal Peripheral Pulses, Regular Rate/Rhythm Breast Exam: Deferred Gastrointestinal: No Organomegaly, Non Tender, No Pulsatile Mass, Normal Bowel Sounds, Soft Genitalia: Deferred Pelvic: Deferred Rectal: Deferred Extremities: No calf tenderness, Normal capillary refill, Normal inspection, Normal range of motion, Non-tender, No pedal edema Musculoskeletal : Apperance: Normal Neurologic: Alert, social work job titles II-XII nml as Tested, No Motor Deficits, Normal Affect, Normal Mood, No Sensory Deficits Cerebellar Function: Normal Reflexes: Normal Skin: Dry, Normal Color, Warm Lymphatic: No Adenopathy Was a procedure done? Was a procedure done?: No Differential Dx Considerations may include: ACS, viral syndrome, electrolyte abnormality, worsening infection, dehydration X-Ray, Labs, Meds, VS Vital Signs Date Time Temp Pulse Resp B/P (MAP) Pulse Ox O2 Delivery O2 Flow Rate FiO2 02/16/25 15:28 98.3 53 15 111/58 (75) 99 98.3 02/16/25 14:08 Room Air* 0 21 02/16/25 12:52 53 02/16/25 12:45 97.8 50 16 141/84 95 97.8 Lab Test 02/16/25 14:01 02/16/25 13:50 Range/Units Urine Color Brown H Yellow Urine Clarity Turbid H Clear Urine pH 6.5 5.0-9.0 Urine Specific [place] 1.019 1.001-1.035 Urine Protein Negative Negative Urine Ketones Negative Negative Urine Blood 3+ H Negative /uL Urine Nitrite Negative Negative Urine Bilirubin Negative Negative Urine Urobilinogen Normal Negative mg/dL Urine Leukocyte Esterase Negative Negative /uL Urine RBC 3617 0 - 4 /hpf Urine Microscopic WBC 8 H 0-5 /HPF Urine Squamous Epithelial Cells Few <5 /hpf Urine Bacteria Few H None Seen /hpf Urine Glucose Normal Normal mg/dL Urine Test Negative Negative White Blood Count 8.5 4.4-10.8 10^3/uL Red Blood Count 4.76 4.0-5.20 10^6/uL Hemoglobin 14.8 12.2-16.2 g/dL Hematocrit 43.3 36.0-46.0 % Mean Corpuscular Volume 91.0 80.0-100.0 fL Mean Corpuscular Hemoglobin 31.0 28.0-32.0 pg Mean Corpuscular Hemoglobin Concent 34.1 32.0-36.0 g/dL Red Cell Distribution Width 14.4 H 11.8-14.3 % Platelet Count 267 140-450 10^3/uL Mean Platelet Volume 8.0 6.9-10.8 fL Neutrophils (%) (Auto) 53.4 37.0-80.0 % Lymphocytes (%) (Auto) 37.5 10.0-50.0 % Monocytes (%) (Auto) 5.8 0.0-12.0 % Eosinophils (%) (Auto) 2.9 0.0-7.0 % Basophils (%) (Auto) 0.4 0.0-2.0 % Neutrophils # (Auto) 4.5 1.6-8.6 10 ^3/uL Lymphocytes # (Auto) 3.2 0.4-5.4 10 ^3/uL Monocytes # (Auto) 0.5 0-1.3 10 ^3/uL Eosinophils # (Auto) 0.2 0-0.8 10 ^3/uL Basophils # (Auto) 0 0-0.2 10 ^3/uL Nucleated Red Blood Cells 0.1 % Sodium Level 143 136-145 mmol/L Potassium Level 4.1 3.5-5.1 mmol/L Chloride Level 107 98-107 mmol/L Carbon Dioxide Level 27 20-31 mmol/L Anion Gap 9 5-15 Blood Urea Nitrogen 10 9-23 mg/dL Creatinine 0.67 0.550-1.02 mg/dL Glomerular Filtration Rate Calc 120 >90 mL/min BUN/Creatinine Ratio 14.9 10.0-20.0 Serum Glucose 89 74-106 mg/dL Calcium Level 8.7 8.7-10.4 mg/dL Troponin I High Sensitivity < 3 L </=34 ng/L Current Medications Medications (Trade) Dose Ordered Sig/Nilsa Route Start Time Stop Time Status Last Admin Ketorolac Tromethamine (Toradol Injection) 15 mg ONCE ONCE IV 02/16/25 13:45 02/16/25 13:46 DC 02/16/25 13:57 Sodium Chloride 1,000 ml @ 1,000 mls/hr Q1H ONCE IV 02/16/25 13:45 02/16/25 14:44 DC 02/16/25 13:57 Time of 1ST Reevaluation: 13:25 Reevaluation 1ST: Unchanged Patient Education/Counseling: Diagnosis, Treatment, Prognosis Family Education/Counseling: No Family Present SEPSIS Sepsis Screen Date sepsis recognized/suspect: Feb 16, 2025 Time Sepsis recognized/suspect: 1245 Recent Procedure: No On Antibiotic Therapy: No Respiratory Rate >20: No Heart Rate >90: Yes Temp<36 C (96.8 F) or >38.3 C: No SBP <90 or MAP <65 mmHG: No New Acute Mental Status Change: No Is the patient on CPAP, BIPAP,: No Physician Orders Electrocardigram (02/16/25 12:56) Chest Portable (02/16/25 13:42) Vital Signs Date Time Temp Pulse Resp B/P (MAP) Pulse Ox O2 Delivery O2 Flow Rate FiO2 02/16/25 15:28 98.3 53 15 111/58 (75) 99 98.3 02/16/25 14:08 Room Air* 0 21 02/16/25 12:52 53 02/16/25 12:45 97.8 50 16 141/84 95 97.8 Laboratory Tests Test 02/16/25 13:50 White Blood Count 8.5 10^3/uL (4.4-10.8) Medications Medications Dose Ordered Sig/Nilsa Route Start Time Stop Time Status Last Admin Dose Admin Ketorolac Tromethamine 15 mg ONCE ONCE IV 02/16/25 13:45 02/16/25 13:46 DC 02/16/25 13:57 Sodium Chloride 1,000 ml @ 1,000 mls/hr Q1H ONCE IV 02/16/25 13:45 02/16/25 14:44 DC 02/16/25 13:57 Departure 1 Departure Time of Disposition: 16:56 (Patient's workup is benign. Patient is feeling better. In my judgment Patient is likely not feeling well secondary to antibiotic usage tooth infection. We will discharge patient home with outpatient follow up) Impression: Primary Impression: Dental infection Additional Impression: Dizziness Disposition: HOME / SELF CARE / HOMELESS Condition: Stable Additional Instructions: Your workup today was benign. You can take Tylenol or Motrin as needed for pain. You should follow up with your regular doctor within 1 week. You should stay well rested and well hydrated. If your symptoms worsen or you have any other concerns please return to the emergency room. Discharged With: Self Critical Care Note Critical Care Time?: No Stability Stability form required: No I personally scribed for BRADEN ROBINS MD ([email or web address]) on 02/16/25 at 13:36. Electronically submitted by Gabriel Childers ([email or web address]). BRADEN ROBINS MD Feb 16, 2025 13:36
[2025-02-16] MEDS: KETOROLAC TROMETH 30 MG/ML 1ML VIAL IV ONE (13:57)
[2025-02-16] MEDS: SODIUM CHLORIDE 0.9% 1,000 ML IV ONE (13:57)
[2025-02-16 14:05] LABS: Hematocrit 43.3 % (36.0-46.0); Hemoglobin 14.8 g/dL (12.2-16.2); Mean Corpuscular Hemoglobin 31.0 pg (28.0-32.0); Mean Corpuscular Volume 91.0 fL (80.0-100.0); Nucleated Red Blood Cells % 0.1 %
[2025-02-16 14:11] LABS: Potassium 4.1 mmol/L (3.5-5.1); Sodium 143 mmol/L (136-145)
[2025-02-16 14:12] LABS: Anion Gap 9 (5-15); Calcium 8.7 mg/dL (8.7-10.4); Carbon Dioxide 27 mmol/L (20-31); Chloride 107 mmol/L (98-107)
[2025-02-16 14:17] LABS: BUN/Creatinine Ratio 14.9 (10.0-20.0); Blood Urea Nitrogen 10 mg/dL (9-23); Glucose 89 mg/dL (74-106)
[2025-02-16 15:07] LABS: Urine Protein, UAD Negative (Negative)
--- NOTE | 2025-02-16 15:43 | DVH ---
CHEST RADIOGRAPH Indication: dizziness Technique: Single frontal view of the chest was obtained Comparison: None FINDINGS: Lines and Tubes: None Lungs: No focal consolidation. Pleura: No effusion. No pneumothorax. Cardiomediastinal contours: Unremarkable Bones: No acute osseous abnormality. IMPRESSION: 1. No acute cardiopulmonary disease.
[2025-02-16 17:36] VITALS: BP 119/78; PULSE 59; RESP 16; TEMP 98.7; O2SAT 96
--- NOTE | 2025-02-17 11:13 | ECG ---
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
== END 2025-02-16 17:38 | disposition home or self-care (01) ==
LOC: ER 12:44
DX: K04.7 Periapical abscess without sinus (principal); R42 Dizziness and giddiness; Z79.899 Other long term (current) drug therapy
CPT/HCPCS: 36415; 71045; 80048; 81001; 81025; 84484; 85025; 93005; 96361; 96374; 99285; J1885; J7030